=== PATIENT | female | born 2000 | race Hispanic/Latino ===

== ENCOUNTER 2019-02-23 12:06 | Observation (INO) | payer SELFPAY ==
[2019-02-23 13:05] LABS: #Basophils 0.1 thou/uL (0.0-0.2); #Eosinphils 0.2 thou/uL (0.0-0.7); #Lymphocytes 0.8 thou/uL (1.20-3.40); #Monocytes 0.3 thou/uL (0.11-0.59); #Neutrophils 8.1 thou/uL (1.40-6.50); %Eosinophils 2.4 % (0.0-10.0); %Lymphocytes 8.8 % (28.0-48.0); %Monocytes 3.6 % (0.0-4.0); %Neutrophils 84.3 % (31.0-61.0); Hemoglobin 14.8 g/dL (12.0-16.0); Mean Corpuscular HGB CONC 34.6 g/dL (32.0-36.0); Mean Corpuscular Hemoglobin 31.6 pg (25.0-35.0); Mean Corpuscular Volume 91.2 fL (78.0-98.0); Mean Platelet Volume 6.6 fL (7.4-10.4); Platelet Count 324 thou/uL (130-400); Red Blood Cell (RBC) Count 4.69 mill/uL (4.00-5.20); White Blood Cell (WBC) Count 9.6 thou/uL (4.8-10.8)
[2019-02-23] MEDS ORDERED: methylPREDNISolone Sod Succ/PF 125 MG/2 ML VIAL ONE (13:06)
[2019-02-23] MEDS ORDERED: Famotidine/PF 20 mg/2ml Vial ONE (13:06)
[2019-02-23] MEDS ORDERED: diphenhydrAMINE 50 MG/ML VIAL ONE (13:06)
[2019-02-23 13:26] LABS: ALT (SGPT) 30 U/L (8-55); AST (SGOT) 29 U/L (5-34); Albumin 4.7 g/dL (3.5-5.0); Alkaline Phosphatase 80 U/L (40-100); Anion Gap 15 mmol/L (10-20); BUN (Urea Nitrogen) 11 mg/dL (7.0-18.7); Bilirubin, Total 0.9 mg/dL (0.2-1.2); Calc. Creatinine Clearance 0 mL/min (70-130); Calcium 8.8 mg/dL (7.8-10.44); Carbon Dioxide 22 mmol/L (22-29); Chloride 98 mmol/L (98-107); Estimated GFR-MDRD 71; Globulin 3.6 g/dL (2.4-3.5); Glucose 96 mg/dL (70-105); Potassium 3.8 mmol/L (3.5-5.1); Protein, Total 8.3 g/dL (6.0-8.3); Sodium 131 mmol/L (136-145)
[2019-02-23 13:37] LABS: BHCG - Serum Negative (NEGATIVE); Pregs Control Background? CLEAR/WHITE (CLR/WHITE); Pregs Control Bar Appear? YES (CONTROL BAR)
[2019-02-23 14:07] LABS: Thyroid Stimulating Hormone 0.5403 uIU/mL (0.35-4.94)
[2019-02-23 18:39] LABS: Bacteria/HPF 1+ HPF (None Seen); Bilirubin Negative (Negative); Blood, Urine Trace (Negative); Clarity Clear (Clear); Glucose, Urine (Dipstick) Normal (Negative); Leukocyte Negative Leu/uL (Negative); Nitrite Negative (Negative); Protein, Urine (Dipstick) Negative (Neg-Trace); RBC/HPF 0-3 HPF (0-3); Squamous Epithelial 0-3 HPF (0-3); Urobilinogen Normal mg/dL (Less than 2); WBC/HPF 0-3 HPF (0-3)
[2019-02-23] MEDS ORDERED: Sodium Chloride 0.9% 1,000 ML IV SCH (20:15)
[2019-02-23] MEDS ORDERED: Ondansetron PF 4 MG/2 ML Vial IVP PRN (21:24)
[2019-02-23] MEDS ORDERED: Ondansetron ODT 4 MG TAB PO PRN (21:24)
[2019-02-23] MEDS ORDERED: Acetaminophen 325 MG TAB PO PRN (21:24)
[2019-02-23] MEDS ORDERED: Acetaminophen 650 MG Suppository PR PRN (21:24)
[2019-02-23] MEDS ORDERED: diphenhydrAMINE 25 MG CAP PO PRN ×2 (21:31→22:56)
[2019-02-24 05:39] LABS: #Eosinphils 0.1 thou/uL (0.0-0.7); #Lymphocytes 1.1 thou/uL (1.20-3.40); #Monocytes 0.3 thou/uL (0.11-0.59); #Neutrophils 4.2 thou/uL (1.40-6.50); %Lymphocytes 19.8 % (28.0-48.0); %Monocytes 5.2 % (0.0-4.0); Hemoglobin 10.7 g/dL (12.0-16.0); Mean Corpuscular HGB CONC 33.4 g/dL (32.0-36.0); Mean Corpuscular Hemoglobin 31.1 pg (25.0-35.0); Mean Platelet Volume 6.8 fL (7.4-10.4); Platelet Count 245 thou/uL (130-400); RBC Distribution Width 11.7 % (11.5-14.5); Red Blood Cell (RBC) Count 3.44 mill/uL (4.00-5.20); White Blood Cell (WBC) Count 5.7 thou/uL (4.8-10.8)
[2019-02-24 05:48] LABS: Anion Gap 8 mmol/L (10-20); BUN (Urea Nitrogen) 9 mg/dL (7.0-18.7); Calc. Creatinine Clearance 156 mL/min (70-130); Calcium 7.9 mg/dL (7.8-10.44); Carbon Dioxide 22 mmol/L (22-29); Chloride 108 mmol/L (98-107); Estimated GFR-MDRD Greater than 90; Glucose 109 mg/dL (70-105); Potassium 4.1 mmol/L (3.5-5.1); Sodium 134 mmol/L (136-145)
--- NOTE | 2019-02-24 07:12 | HP ---
PRIMARY CARE PHYSICIAN: None. CHIEF COMPLAINT: Allergic reaction. HISTORY OF PRESENT ILLNESS: Ms. Marsh is a pleasant 19-year-old woman who presented to the emergency department today due to development of a rash that first began yesterday. The patient was recently treated with Bactrim for UTI and started antibiotics early last week. She was due for her last dose this morning, which she did take. The patient states yesterday she noted an erythematous pruritic rash on her wrist. She took Claritin yesterday. Noted fever last night. This morning , she noted that the rash had continued to spread involving her chest, back, upper arms, and bilateral thighs. She states it continued to be pruritic, prompting her to come into the emergency department. She denies having any sores in her mouth. No sore throat. Denies any chest pain, palpitations, or shortness of breath. No difficulty swallowing. In the emergency department, she had a dose of methylprednisolone 125 mg IV x1, as well as famotidine 20 mg IV and Benadryl 50 mg IV. The patient was given 1 L of normal saline as she was noted to be slightly tachycardic, but afebrile. She reports having significant improvement since receiving these medications and has already noted less erythema and itching in her upper extremities and on her chest and abdomen. Currently, she is without complaints and states she no longer feels feverish or unwell. She states she feels back to her normal self. PAST MEDICAL HISTORY: None. PAST SURGICAL HISTORY: None. SOCIAL HISTORY: The patient denies any tobacco use, alcohol consumption, or illicit drug use. FAMILY HISTORY: Noncontributory. ALLERGIES: NO KNOWN HISTORY OF DRUG ALLERGIES. CURRENT MEDICATIONS: None. She recently completed the course of Bactrim this morning. PHYSICAL EXAMINATION: GENERAL: The patient appears well developed, well nourished, and is in no acute distress. VITAL SIGNS: Temperature 98.3, pulse 109, blood pressure 99/55, respirations 18 , O2 saturation 97% on room air. HEENT: Normocephalic and atraumatic. Pupils are equal, round, and reactive to light. Sclerae without icterus. Oropharynx is clear. NECK: Supple. LUNGS: Clear to auscultation bilaterally without any wheezes, rales, or rhonchi. CARDIAC: Regular rate and rhythm. ABDOMEN: Soft, nontender, nondistended. Normoactive bowel sounds present. No guarding or rigidity. EXTREMITIES: No lower leg swelling or edema. NEUROLOGIC: Alert and oriented x3. SKIN: Notable for urticaria involving the bilateral upper extremities, posterior back, and bilateral thighs. No excoriations. No skin desquamation. LABORATORY DATA: White blood count 9.6, hemoglobin 14.8, hematocrit 42.8, platelets 324, neutrophils 84.3%. Sodium 131, potassium 3.8, BUN 11, creatinine 1, GFR 71 , glucose 96, lactic acid 2, calcium 8.8, magnesium 2. LFTs unremarkable. Serum negative. Urinalysis showed trace blood and 1+ urine bacteria, otherwise unremarkable. IMPRESSION AND PLAN: Ms. Marsh is a 19-year-old woman who is presenting with a delayed drug-induced rash. She has been treated in the ER with methylprednisolone, Pepcid, and Benadryl with significant improvement. We will continue with prednisone 60 mg b.i.d. p.o. and Pepcid 20 mg b.i.d. The patient without any respiratory type symptoms or evidence of evidence of oral sores or skin desquamation. We will continue to monitor overnight. She is slightly tachycardic and was febrile earlier today. We will continue telemetry monitoring. We will continue IV fluids. Repeat laboratory studies in the morning. The patient is asymptomatic at present except for mild pruritus, which we will manage with Benadryl. All questions answered to the patient's satisfaction. Code status is full. Surrogate decision maker is her mother, Marita Pokl. The patient's case was discussed with Dr. Zazueta, who agrees with the plan of care as described above. Job ID: [id number] [facility]
[2019-02-24 08:23] VITALS: BP 89/51; TEMP 97.4
[2019-02-24] MEDS ORDERED: Famotidine/PF 20 mg/2ml Vial SLOW IVP SCH (09:00)
[2019-02-24] MEDS ORDERED: predniSONE 20 MG TAB PO SCH (09:00)
--- NOTE | 2019-02-24 09:24 | DIS ---
DATE OF ADMISSION: 02/23/2019 DATE OF DISCHARGE: 02/24/2019 PRIMARY CARE PHYSICIAN: No PCP. DISPOSITION: Discharged to home. FINAL DIAGNOSIS: Erythema multiforme. ALLERGIES: SEPTRA. DISCHARGE MEDICATIONS: 1. Prednisone 60 mg a day and declining dose over nine days. 2. Pepcid 20 mg twice a day. ALLERGIES: SULFA. DIET: As tolerated. PENDING AT TIME OF DISCHARGE: Nothing. CODE STATUS: Full. The patient with recent treatment of UTI with sulfamethoxazole/ trimethoprim presented to the ER with a diffuse rash. She was referred to the [facility] Hospitalist [facility] with a diffuse rash on both arms, trunk. CBC was unremarkable. Comprehensive metabolic profile showed a sodium 131, otherwise unremarkable. Lactic acid was 2.0. She was given steroids, Benadryl in the hospital today. She is clearing albeit incomplete of the acute phase of the rash. She has no mucous membrane symptoms. She feels good, wants to go home. She is being discharged on oral medicines. CONSULTATIONS: No consultations. PROCEDURES: None. Needs a PCP for followup in 1 week. Job ID: [id number]
[2019-02-24] MEDS ORDERED: FLU VACC QS2019-20(6MOS UP)/PF 60 MCG/0.5 ML SYRINGE IM ONE (21:00)
== END 2019-02-24 11:15 | disposition home or self-care (01) ==
LOC: ERS 12:06 → 2SW 20:30
PROVIDERS: ADMIT Internal Medicine; ATTEND Internal Medicine
DX: L51.9 Erythema multiforme, unspecified (principal); T37.0X5A Adverse effect of sulfonamides, initial encounter; Z88.2 Allergy status to sulfonamides
CPT/HCPCS: 36415; 80048; 80053; 81003; 81015; 83605; 83735; 84443; 84703; 85025; 96361; 96374; 96375; G0378; J1200; J2930; J7512; S0028